=== PATIENT | male | born 2000 | race Caucasian/White ===

== ENCOUNTER 2022-10-17 12:39 | Emergency (ER) | payer BC ==
[2022-10-17] MEDS ORDERED: Sodium Chloride 0.9% 10 ML Syringe FLUSH PRN (12:46)
[2022-10-17] MEDS ORDERED: Sodium Chloride 0.9% 2.5 ML Syringe FLUSH PRN (12:46)
[2022-10-17] MEDS ORDERED: Sodium Chloride 0.9% 1,000 ML IV ONE (12:48)
[2022-10-17] MEDS ORDERED: Morphine 4 MG/ML Syringe IVPUSH ONE (12:48)
[2022-10-17 15:17] VITALS: BP 115/64; PULSE 74
== END 2022-10-17 15:10 | disposition home or self-care (01) ==
LOC: MW.ED 12:39
DX: S43.015A Anterior dislocation of left humerus, initial encounter (principal); W22.09XA Striking against other stationary object, initial encounter
CPT/HCPCS: 23650; 73030; 96361; 96374; 99283; J2270; J3490; J7030; 99284

== ENCOUNTER 2022-10-27 15:51 | Emergency (ER) | payer BC ==
[2022-10-27] MEDS ORDERED: Sodium Chloride 0.9% 10 ML Syringe FLUSH PRN (16:34)
[2022-10-27] MEDS ORDERED: HYDROmorphone 1 MG/ML Syringe IVPUSH ONE ×3 (16:34→17:43)
[2022-10-27] MEDS ORDERED: Sodium Chloride 0.9% 2.5 ML Syringe FLUSH PRN (16:34)
[2022-10-27] MEDS ORDERED: Lactated Ringers 1,000 ML IV SCH (16:45)
[2022-10-27] MEDS ORDERED: HYDROmorphone 1 MG/ML Syringe ONE ×2 (16:45→17:09)
[2022-10-27] MEDS ORDERED: LORazepam 2 MG/ML SDV ONE (16:51)
[2022-10-27] MEDS ORDERED: LORazepam 2 MG/ML SDV IVPUSH ONE (17:43)
[2022-10-27 18:57] VITALS: BP 115/67
[2022-10-27 20:46] VITALS: PULSE 64
== END 2022-10-27 20:24 | disposition home or self-care (01) ==
LOC: MW.ED 15:51
DX: S43.005A Unspecified dislocation of left shoulder joint, initial encounter (principal); W55.22XA Struck by cow, initial encounter
CPT/HCPCS: 23650; 73030; 96361; 96374; 96375; 99283; J1170; J2060; J3490; J7120; 99284